=== PATIENT | male | born 1955 | race Caucasian/White ===

== ENCOUNTER 2022-12-27 12:28 | Emergency (ER) | payer OTHER ==
[2022-12-27 14:38] LABS: Absolute Lymphocytes (CBC) 1.7 K/uL (0.7-4.9); Hematocrit 41.7 % (39.6-49.0); Lymphocytes % 21.8 % (15.3-44.8); MCV 93.5 fL (80-100); MPV 7.5 fL (7.6-11.3); Platelets 358 thou/uL (152-406); RBC Red Blood Cell Count 4.46 M/uL (4.33-5.43)
[2022-12-27 14:54] LABS: Potassium 3.9 mEq/L (3.5-5.1)
--- NOTE | 2022-12-27 14:58 | EDPHYS ---
Physician Documentation [facility] Name: Cam Khalil Age: 67 yrs Sex: Male : 1955 Arrival Date: 12/27/2022 Time: 12:28 Bed DX4 Private MD: ED Physician Lui Yeung HPI: 12/27 12:57 This 67 yrs old Male presents to ER via Ambulatory with complaints of ec2 Abnormal Lab Results. 12:57 Patient arrives today for evaluation of abnormal labs. Patient reports that he has a ec2 history of CKD, had abnormal potassium several weeks ago, had a repeat potassium yesterday and was told to come to the ED today due to elevated potassium. Unclear what the number was. Patient reports he is otherwise been in normal state of health and has no concerns specifically.. Historical: - Allergies: 12:56 No Known Allergies; mb9 - Home Meds: 12:56 amlodipine oral [Active]; mb9 - PMHx: 12:55 Polycystic kidneys; mb9 - PSHx: 12:56 None; mb9 - Immunization history:: Adult Immunizations up to date. - Social history:: Smoking status: Patient denies any tobacco usage or history of. ROS: 12:57 Constitutional: as per hpi ec2 Exam: 12:57 Constitutional: GEN: NAD Head: atraumatic Eyes: EOMI Ears: External ears are ec2 normal. CV: regular rate LUNGS: no respiratory distress ABD: non-distended SKIN: no evidence of rashes MSK: no evidence of trauma NEURO: moves all extremities equally Vital Signs: 12:53 BP 134 / 88; Pulse 85; Resp 18; Temp 98; Pulse Ox 98% on R/A; Weight 78.02 kg; Height 5 mb9 ft. 11 in. ; Pain 0/10; 15:03 BP 130 / 84; Pulse 80; Resp 17; Pulse Ox 100% on R/A; mb9 12:53 Body Mass Index 23.99 (78.02 kg, 180.34 cm) mb9 12:53 Pain Scale: Adult mb9 MDM: 12:50 Patient medically screened. ec2 12:57 Data reviewed: vital signs. ED course: Patient arrives today for evaluation of ec2 hyperkalemia. Examination remarkable for well-appearing nontoxic individual is otherwise in no acute distress. Will obtain lab work and EKG. Currently considering process such as hyperkalemia, electrolyte disturbances, lab analysis. Will obtain EKG to evaluate for dysrhythmias. . 14:31 ED course: EKG independently reviewed and interpreted by me, shows normal sinus rhythm, ec2 rate of 74, no acute ST segment elevations, intervals nonconcerning, no evidence of hyperkalemic changes. . 14:56 ED course: CBC is reassuring, metabolic profile with potassium at 3.9 level. Will ec2 discharge home. Return precautions given. Does have renal dysfunction which is chronic for him. . 12/27 12:57 Order name: CBC with Diff; Complete Time: 14:56 ec2 12/27 12:57 Order name: BMP; Complete Time: 14:56 ec2 12/27 12:57 Order name: EKG; Complete Time: 12:57 ec2 12/27 12:57 Order name: EKG - Nurse/Tech; Complete Time: 14:25 ec2 Administered Medications: No medications were administered Disposition Summary: 12/27/22 14:57 Discharge Ordered Notes: Location: Home ec2 Condition: Stable ec2 Diagnosis - Concern for potassium ec2 - Renal Dysfunction ec2 Forms: - Medication Reconciliation Form ec2 - Thank You Letter ec2 - Antibiotic Education ec2 - Prescription Opioid Use ec2 - Patient Portal Instructions ec2 - Leadership Thank You Letter ec2 Signatures: Dispatcher [employer] Lindy Calixto RN RN mb9 Lui Yeung MD MD ec2 Corrections: (The following items were deleted from the chart) 13:09 13:09 Patient medically screened. ec2 ec2
--- NOTE | 2022-12-27 14:58 | ER ---
Nurse's Notes [facility] Name: Cam Khalil Age: 67 yrs Sex: Male : 1955 Arrival Date: 12/27/2022 Time: 12:28 Bed DX4 Private MD: Diagnosis: Concern for potassium;Renal Dysfunction Presentation: 12/27 12:53 Chief complaint: Patient states: "I went to get blood work done and my PCP called me mb9 today and said my Potassium was high and told me to go to the ER. They didn't tell me what it was. " Pt denies CP/SOB. Coronavirus screen: At this time, the client does not indicate any symptoms associated with coronavirus-19. Ebola Screen: No symptoms or risks identified at this time. Initial Sepsis Screen: Does the patient meet any 2 criteria? No. Patient's initial sepsis screen is negative. Does the patient have a suspected source of infection? No. Patient's initial sepsis screen is negative. Risk Assessment: Do you want to hurt yourself or someone else? Patient reports no desire to harm self or others. Onset of symptoms was December 27, 2022. 12:53 Method Of Arrival: Ambulatory mb9 12:53 Acuity: MARTIN 3 mb9 Triage Assessment: 12:57 General: Appears in no apparent distress. Behavior is calm, cooperative. Pain: Denies mb9 pain. EENT: No deficits noted. Neuro: Painting Agitation-Sedation Scale (RASS): 0 - Alert and Calm. Cardiovascular: Denies chest pain, shortness of breath. Respiratory: Airway is patent Respiratory effort is even, unlabored, Respiratory pattern is regular, symmetrical. GI: No signs and/or symptoms were reported involving the gastrointestinal system. : No signs and/or symptoms were reported regarding the genitourinary system. Derm: Skin is. Musculoskeletal: Range of motion: intact in all extremities. Historical: - Allergies: 12:56 No Known Allergies; mb9 - Home Meds: 12:56 amlodipine oral [Active]; mb9 - PMHx: 12:55 Polycystic kidneys; mb9 - PSHx: 12:56 None; mb9 - Immunization history:: Adult Immunizations up to date. - Social history:: Smoking status: Patient denies any tobacco usage or history of. Screenin:02 [facility] ED Fall Risk Assessment (Adult) History of falling in the last 3 months, mb9 including since admission No falls in past 3 months (0 pts) Confusion or Disorientation No (0 pts) Intoxicated or Sedated No (0 pts) Impaired Gait No (0 pts) Mobility Assist Device Used No (0 pt) Altered Elimination No (0 pt) Score/Fall Risk Level 0 - 2 = Low Risk Oriented to surroundings, Maintained a safe environment, Educated pt \\T\\ family on fall prevention, incl call for assistance when getting out of bed. Abuse screen: Denies threats or abuse. Nutritional screening: No deficits noted. Tuberculosis screening: No symptoms or risk factors identified. Assessment: 15:02 Reassessment: No changes from previously documented assessment. Patient and/or family mb9 updated on plan of care and expected duration. Pain level reassessed. Patient is alert, oriented x 3, equal unlabored respirations, skin warm/dry/pink. Vital Signs: 12:53 BP 134 / 88; Pulse 85; Resp 18; Temp 98; Pulse Ox 98% on R/A; Weight 78.02 kg; Height 5 mb9 ft. 11 in. ; Pain 0/10; 15:03 BP 130 / 84; Pulse 80; Resp 17; Pulse Ox 100% on R/A; mb9 12:53 Body Mass Index 23.99 (78.02 kg, 180.34 cm) mb9 12:53 Pain Scale: Adult mb9 ED Course: 12:31 Patient arrived in ED. mg5 12:32 Lui Yeung MD is Attending Physician. ec2 12:55 Triage completed. mb9 12:56 Arm band placed on. mb9 14:25 BMP Sent. bc6 14:25 CBC with Diff Sent. bc6 14:25 Inserted saline lock: 20 gauge in left antecubital area, using aseptic technique. Blood bc6 collected. 15:02 Lindy Gutierrez, PRAVEEN is Primary Nurse. mb9 15:02 Call light in reach. mb9 15:03 No provider procedures requiring assistance completed. IV discontinued, intact, mb9 bleeding controlled, No redness/swelling at site. Pressure dressing applied. Administered Medications: No medications were administered Medication: 15:03 VIS not applicable for this client. mb9 Outcome: 14:57 Discharge ordered by . ec2 15:03 Discharged to home ambulatory, mb9 15:03 Condition: stable 15:03 Discharge instructions given to patient, Instructed on discharge instructions, follow up and referral plans. Demonstrated understanding of instructions, follow-up care, 15:03 Patient left the ED. mb9 Signatures: Lindy Gutierrez RN RN mb9 Dilcia Lima 6 Melani Lugo mg5 Lui Yeung MD MD ec2 Corrections: (The following items were deleted from the chart) 12:56 12:53 BP 134 / 88; Pulse 85bpm; Resp 18bpm; Pulse Ox 98%; Temp 98F; Pain 0/10, Adult; mb9 mb9
[2022-12-27 16:01] VITALS: TEMP 98
[2022-12-27 16:03] VITALS: BP 130/84; O2SAT 100
--- NOTE | 2022-12-27 17:38 | EKG ---
Test Date: 2022-12-27 Test Time: 14:29:34 Medical Care Evaluation Specialist: ESPERANZA MEASUREMENT RESULTS: Intervals: Rate: 74 MN: 204 QRSD: 88 QT: 378 QTc: 419 [place]: P: 80 MN: 204 QRS: 64 T: 81 INTERPRETIVE STATEMENTS: Normal sinus rhythm Nonspecific ST abnormality Abnormal ECG No previous ECG available for comparison Electronically Signed On 12-27-22 17:26:28 [employer] by David Cadena
== END 2022-12-27 15:03 | disposition home or self-care (01) ==
LOC: SUPCPDRO 12:28 → ER 12:28
DX: R79.89 Other specified abnormal findings of blood chemistry (principal); N18.9 Chronic kidney disease, unspecified
CPT/HCPCS: 36415; 80048; 85025; 93005; 99283